=== PATIENT | male | born 1960 | race African-American/Black ===

== ENCOUNTER 2016-12-03 01:42 | Emergency (ER) | payer OTHER ==
[2016-12-02 21:59] LABS: INFLUENZA A NEG (NEG)
[2016-12-02 22:00] LABS: INFLUENZA B NEG (NEG)
--- NOTE | ~2016-12-03 | CR72 ---
[facility] A Service of [facility] & [facility] RADIOLOGY TEXT RESULTS PATIENT: DANIEL ADAMSON LOCATION: [facility] : 58 UNIT #: [id number] AGE: [address]: Felipe Bowling MD SEX: M ORDER DR: [id number] [facility] [address] [place], [place] [address] [id number] MR#: [id number] Acc #: [id number] NAME: DANIEL ADAMSON : 1960 SEX: M STUDY DATE/TIME: 12/03/2016 1:14 UNIT: [facility] ROOM: STUDY DESCRIPTION: CR Chest Single View Portable Attending Physician: Felipe Bowling M.D. Ordering Physician: Ed Doctor [id number] [facility] Primary Care Physician: No Primary Care Physician MEDICAL IMAGING REPORT This report is preliminary unless electronic signature is present EXAM AP portable chest 12/03/2016 HISTORY A 56-year-old male in the ED complaining of 3-day history of shortness of air, cough and body aches. TECHNIQUE AP portable chest x-ray. FINDINGS The examination is negative. Heart size and pulmonary vascularity are normal. The lungs are expanded and clear. No visible pulmonary infiltrate or pleural effusion. No change since 03/17/2015. IMPRESSION Negative chest. Dictated by... Mauricio Palomo M.D. THIS IS AN ELECTRONICALLY VERIFIED REPORT Mauricio Palomo M.D. at 12/03/2016 10:06 PM MED/miriam TD: 12/03/2016 13:11 JOB #: [id number] MEDICAL IMAGING REPORT Page 1 of 1 COPY
[2016-12-03 01:11] LABS: BASOPHIL# 0.1 X10e3 (0-0.3); BASOPHIL% 0.7 % (0-2.5); EOSINOPHIL# 0.1 X10e3 (0-0.7); EOSINOPHIL% 0.7 % (0.0-7.0); HEMATOCRIT 47.4 % (38.0-50.0); HEMOGLOBIN 15.6 gm/dL (13.0-16.0); LYMPHOCYTE# 2.2 X10e3 (1.0-3.5); LYMPHOCYTE% 24.8 % (17.0-45.0); MEAN CELL VOLUME 91.1 FL (83-96); MEAN CORPUSCULAR HEMOGLOBIN 29.9 PG (28-34); MEAN CORPUSCULAR HGB CONC 32.9 g/dL (30-36); MEAN PLATELET VOLUME 9.7 FL (6.5-11.5); MONOCYTE# 0.6 X10e3 (0-1.0); MONOCYTE% 7.1 % (3.0-12.0); NEUTROPHIL# 5.8 X10e3 (1.5-7.1); NEUTROPHIL% 66.7 % (40-75); PLATELET COUNT 262 X10e3 (140-420); RED CELL DISTRIBUTION WIDTH 14.5 % (11.0-15.5); WHITE BLOOD COUNT 8.7 X10e3 (4.0-10.5)
[2016-12-03 01:15] LABS: DIFF IND NO
[2016-12-03 01:31] LABS: URINE SOURCE CLEAN CATCH
[2016-12-03 01:36] LABS: URINE BILIRUBIN NEG (NEG); URINE BLOOD NEG (NEG); URINE COLOR DK YELLOW; URINE GLUCOSE NEG (NEG); URINE KETONE 1+ (NEG); URINE LEUKOCYTE ESTERASE NEG (NEG); URINE NITRATE NEG (NEG); URINE PROTEIN NEG (NEG); URINE SPECIFIC GRAVITY 1.027 (1.003-1.035)
[2016-12-03 01:40] LABS: CULTURE INDICATED? NO
[~2016-12-03 01:42] MED LIST: AZITHROMYCIN250 MG PO; BENTYL10 MG PO; NO MEDICATIONS; PHENERGAN PO; PHENERGAN25 MG PO; ZOFRAN ODT4 MG PO
[2016-12-03 02:42] LABS: ALKALINE PHOSPHATASE 89 U/L (32-92); ALT (SGPT) 17 U/L (10-40); AST (SGOT) 19 U/L (10-42); BILIRUBIN,TOTAL 0.8 mg/dL (0.2-2.0); BLOOD UREA NITROGEN 19 mg/dL (9-23); BUN/CREATININE RATIO 23.75; CALCIUM SERUM 9.5 mg/dL (8.4-10.2); CARBON DIOXIDE 25 mmol/L (22-31); CHLORIDE 101 mmol/L (100-111); CREATININE SERUM 0.8 mg/dL (0.6-1.4); GLOM FILT RATE Estimated ABOVE60 mL/min (>60); GLUCOSE FASTING 109 mg/dL (70-110); POTASSIUM 3.6 mmol/L (3.5-5.1); PROTEIN TOTAL SERUM 7.8 g/dL (6.0-8.3); SODIUM 136 mmol/L (135-145)
== END 2016-12-03 03:50 | disposition home or self-care (01) ==
LOC: CED 01:42
PROVIDERS: Emergency Medicine
DX: J06.9 Acute upper respiratory infection, unspecified (principal)
CPT/HCPCS: 36415; 71010; 80053; 81003; 85025; 87804; 96361; 96374; 99284; J1885

== ENCOUNTER 2017-01-13 05:58 | Inpatient (IN) | payer OTHER ==
--- NOTE | ~2017-01-13 | CT4 ---
[facility] A Service of [facility] & [facility] RADIOLOGY TEXT RESULTS PATIENT: DANIEL ADAMSON LOCATION: C2A 201-01 : 58 UNIT #: [id number] AGE: [address]: Alayna Dyson MD SEX: M ORDER DR: [id number] [facility] [address] [place], [place] [address] [id number] MR#: [id number] Acc #: [id number] NAME: DANIEL ADAMSON : 1960 SEX: M STUDY DATE/TIME: 01/13/2017 5:32 UNIT: [facility] ROOM: 87267 STUDY DESCRIPTION: CT Abd and Pelv Wo Cont Attending Physician: Alayna Dyson M.D. Ordering Physician: Brittny Kaiser M.D. Primary Care Physician: Primary Care Physician No MEDICAL IMAGING REPORT This report is preliminary unless electronic signature is present EXAM CT abdomen and pelvis without contrast 01/13/2017 HISTORY 56-year-old male with nausea, vomiting for 6 days. Left flank pain. History of liver hemangioma. COMPARISON CT abdomen and pelvis with contrast 04/07/2015, 03/12/2011. PROCEDURE 3 mm noncontrast axial images through the abdomen and pelvis. Enteric contrast was not administered. Sagittal and coronal reformatted images were obtained. This CT examination was performed with one or more of the following radiation dose reduction techniques: automatic exposure control, adjustment of mA and/or kV according to patient size, and iterative reconstruction. FINDINGS ABDOMEN: Lobulated low-density lesion in the medial left hepatic segment measures approximately 7 cm and corresponds to the patient's known hemangioma. Cystic foci are seen elsewhere within the liver. Low-density lesion in the posterior right hepatic lobe measures approximately 1 cm and is unchanged, thought to most likely represent a hemangioma, as well, corresponding to the previous CT findings. No new liver lesion is evident. Lung bases are clear. The spleen, pancreas, adrenals and kidneys have a normal noncontrast appearance. No renal or ureteral stone, hydronephrosis, hydroureter or perinephric inflammation is seen. Limited evaluation of bowel due to lack of enteric contrast but no focal bowel inflammation is seen. The appendix is normal. There is mild calcific atherosclerosis within the abdominal aorta. [facility] A Service of [facility] RADIOLOGY TEXT RESULTS PATIENT: DANIEL ADAMSON LOCATION: C2A 201-01 : 58 UNIT #: [id number] AGE: [address]: Alayna Dyson MD SEX: M ORDER DR: PELVIS: Urinary bladder, prostate and rectum are normal. Small pelvic phleboliths. No pelvic free fluid or adenopathy is seen. No acute osseous abnormalities are identified. IMPRESSION 1. No acute findings are appreciated within the abdomen or pelvis. 2. 7 cm low-density lesion in the left hepatic lobe compatible with hemangioma. Other low-density lesions scattered throughout the liver parenchyma are stable since 04/07/2015 in keeping with benign cysts or hemangiomas. 3. The appendix is normal. 4. No urinary tract stone or hydronephrosis or perinephric inflammation is seen. Dictated by... Nirmala Yung M.D. THIS IS AN ELECTRONICALLY VERIFIED REPORT Nirmala Yung M.D. at 01/13/2017 9:59 PM DEONNA/rajiv TD: 01/13/2017 06:54 JOB #: [id number] MEDICAL IMAGING REPORT Page 1 of 1 COPY
--- NOTE | ~2017-01-13 | HP ---
Unit #: [id number] #: [id number] Patient: DANIEL MEDEROS [id number] [place], [place] [address] [id number] MR#: [id number] NAME: DANIEL MEDEROS ROOM: 201 Age: 56 Sex: M Admission Date: 01/13/2017 : 1960 Attending Physician: Alayna Dyson M.D. [facility] HISTORY AND PHYSICAL CHIEF COMPLAINT Abdominal pain. HISTORY OF PRESENT ILLNESS Mr. Mederos is a nice 56-year-old male who presented to the emergency department with complaints of abdominal pain. The patient states he has chronic pain in his testicle and has had surgery on his testicle on two previous occasions. He notes he was having thick urine and a pain associated with urination late last week. He presented to the [facility], at which time he reportedly had a testicular ultrasound which was normal and he returned home. Beginning Thursday evening, after the procedure, he developed recurrent nausea and vomiting. He denies any hematemesis. He developed the onset of abdominal pain after vomiting. He noted a decreased urine output over the weekend. He did have a single episode of nonbloody diarrhea on Thursday. He has had minimal oral intake since that time. Given he had recurrent nausea and vomiting and new onset abdominal pain, he presented to our emergency department. Upon presentation the patient was mildly tachycardic with a pulse rate of 112. Examination in the emergency room revealed diffuse abdominal tenderness. He underwent CT scan of the abdomen and pelvis which did not reveal any acute findings. Lab work, however, revealed a creatinine of 4.2 from a reportedly normal baseline. He subsequently has been referred for admission. Now he states his abdominal pain is better. He has not had any emesis in the last nine hours and actually ate breakfast. He does complain of some pain in his testicles with urination, but again states this is chronic. He has had no new sexual partners and denies any fever. PAST MEDICAL HISTORY 1. Migraine headaches. 2. Known liver hemangioma. 3. Reported cyst on the testicle, status post surgery times two. 4. Tobaccoism. PAST SURGICAL HISTORY 1. Cervical neck surgery. 2. Surgery for a cyst on his testicles times two. SOCIAL HISTORY The patient smokes a half pack of cigarettes per day for at least 20 years. He is vague on how long he has been smoking. He states he drinks two drinks of alcohol, but again is vague on how frequent this is. He lives with his and is obviously . ALLERGIES Unit #: [id number] #: [id number] Patient: DANIEL MEDEROS No known drug allergies. HOME MEDICATIONS None. REVIEW OF SYSTEMS He reports a 40 pound weight loss over the last year that was unintentional. He states his last known weight was 200 and today he is in the 160s. Decreased urine output and some thick discolored urine. Again, he denies any fever. No chest pain. No shortness of breath. No palpitations. No sore throat. No falls. Otherwise 10-point review of systems was reviewed and negative. PHYSICAL EXAMINATION GENERAL: The patient is awake and alert. He is oriented times three. Very pleasant. Vague historian. VITALS: Temperature 98.7, blood pressure 136/89, pulse rate 94 currently, respiratory rate 20, oxygen saturation 98% on room air. HEENT: Pupils equally reactive bilaterally. Anicteric sclerae. No conjunctival pallor. Oropharynx with significantly dry mucous membranes. No erythema or exudate. NECK: Supple. No lymphadenopathy or thyromegaly. No jugular venous distension. ABDOMEN: Soft Diffusely mildly tender with no guarding or rebound. Nondistended. Positive bowel sounds. EXTREMITIES: No cyanosis, clubbing or edema. Pedal pulses 2/4. GENITOURINARY: Uncircumcised male with normal penis. I believe I can palpate perhaps three testicles, but there is no erythema. There is no tenderness. There is no obvious mass. There is no evidence of varicocele. MUSCULOSKELETAL: No joint erythema or deformity noted. NEUROLOGIC: Cranial nerves II through XII intact. Sensation, strength and deep tendon reflexes are all normal. PSYCHIATRIC: Alert and oriented times three. No suicidal or homicidal ideation. DIAGNOSTIC STUDIES IMAGING: CT scan of the abdomen and pelvis reveals a large 7 cm left hepatic lobe hemangioma that is stable. There are other low-density lesions throughout the liver. Normal appendix. No evidence of urinary tract stone or hydronephrosis or perinephric inflammation. LABORATORY: Lab work done in the emergency department reveals a white blood cell count of 15.1, hemoglobin 17.5, platelet count 292,000. Sodium 136, potassium 3.5, chloride 95, bicarb 24, BUN 44, creatinine 4.2, glucose 149. Urinalysis reveals trace leukocyte esterase, trace protein, 5-10 WBCs and no bacteria. ASSESSMENT 1. Acute kidney injury, likely prerenal. 2. Nausea and vomiting. Question gastroenteritis versus other. 3. Chronic testicular pain without obvious infection. 4. Polycythemia secondary to dehydration. 5. Known liver hemangioma, stable. 6. Tobaccoism. 7. History of migraine headache. PLAN 1. Admit the patient to inpatient under medical/surgical. Unit #: [id number] #: [id number] Patient: DANIEL MEDEROS 2. Begin normal saline at 125 ml an hour and follow up creatinine in the morning. 3. I am going to check a urine sodium. Will hold on De La Garza catheter placement at this time given no evidence of hydronephrosis. 4. Symptomatic treatment for nausea and vomiting at this time. 5. Will obtain copy of most recent labs and testicular ultrasound from [facility] in [place] to follow up this testicular pain. I cannot find any obvious source of infection at this time. 6. Will recheck blood counts in the morning. Again, I feel this is most likely dehydration. 7. Briefly counseled regarding tobacco use. 8. DVT prophylaxis with SCDs. Dictated by Alayna Dyson M.D. MICHAEL/jose TD: 01/13/2017 09:30 JOB #: [id number] HISTORY AND PHYSICAL Page 1 of 1 X Alayna Dyson MD X HISTORY AND PHYSICAL
--- NOTE | ~2017-01-13 | DS ---
Unit #: [id number] #: [id number] Patient: DANIEL MEDEROS [id number] [place], [place] [address] [id number] I MR#: [id number] NAME: DANIEL MEDEROS ROOM: 201 Age: 56 Sex: M Admission Date: 01/13/2017 : 1960 Discharge Date: 01/14/2017 Attending Physician: Alayna Dyson M.D. Primary Care Physician: Primary Care Physician No DISCHARGE SUMMARY PRINCIPAL DIAGNOSES 1. Acute kidney injury, prerenal, discharge creatinine 1.0. 2. Nausea, vomiting, likely gastroenteritis. 3. Hypokalemia. 4. Polycythemia secondary to dehydration. Discharge hemoglobin 13.9. 5. Chronic testicular pain with documented bilateral epididymal cyst or spermatoceles that are stable. 6. Benign ectasia, right rete testis, also noted on ultrasound at the [facility]. 7. Known liver hemangioma, stable. 8. Tobaccoism. 9. History of migraine headache. CONSULTANTS None. PROCEDURE CT scan of abdomen and pelvis without contrast on January 13, 2017, with no acute findings. 7-cm low-density lesion, left hepatic lob that is known and stable. CLINICAL HISTORY AND HOSPITAL COURSE Mr. Mederos is a very nice 56-year-old male who presents to the emergency department with intractable nausea, vomiting, and subsequent belly pain. Please refer to H and P for further details. In the emergency department, the patient underwent CT scan of the abdomen and pelvis which was unremarkable. However, he was found to have a creatinine of 4.2, and he was subsequently admitted. The patient received some IV fluids, and today his creatinine is now down to 1.0. His nausea and vomiting have resolved. I suspect this was a gastroenteritis, and no further workup is needed. He did develop some mild hypokalemia secondary to IV hydration, but this has also been treated. The patient was complaining of testicular pain which was chronic. He recently had a testicular ultrasound done at the [facility] last week, and the report was reviewed. He does not appear to have any significant new causative pathology and did not have a positive urine culture here. I instructed him to follow up with Urology at the [facility]. CONDITION ON DISCHARGE Stable. DISCHARGE STATUS Discharged to home. Unit #: [id number] #: [id number] Patient: DANIEL MEDEROS DISCHARGE MEDICATIONS None. FOLLOWUP The patient will follow up with Dr. Calderon at the [facility] in 2 weeks and would benefit from a referral to Urology at that time. Dictated by... Alayna Dyson M.D. MICHAEL/kobe TD: 01/15/2017 11:00 JOB #: [id number] DISCHARGE SUMMARY Page 1 of 1 X Alayna Dsyon MD X DISCHARGE SUMMARY
[2017-01-13 04:31] LABS: BASOPHIL# 0.1 X10e3 (0-0.3); BASOPHIL% 0.6 % (0-2.5); DIFF IND NO; EOSINOPHIL% 0.1 % (0.0-7.0); HEMATOCRIT 53.6 % (38.0-50.0); HEMOGLOBIN 17.5 gm/dL (13.0-16.0); LYMPHOCYTE# 1.9 X10e3 (1.0-3.5); LYMPHOCYTE% 12.8 % (17.0-45.0); MEAN CELL VOLUME 89.5 FL (83-96); MEAN CORPUSCULAR HEMOGLOBIN 29.3 PG (28-34); MEAN CORPUSCULAR HGB CONC 32.7 g/dL (30-36); MEAN PLATELET VOLUME 9.8 FL (6.5-11.5); MONOCYTE# 1.3 X10e3 (0-1.0); MONOCYTE% 8.3 % (3.0-12.0); NEUTROPHIL# 11.8 X10e3 (1.5-7.1); NEUTROPHIL% 78.2 % (40-75); PLATELET COUNT 292 X10e3 (140-420); RED BLOOD COUNT 5.99 X10e (3.90-5.60); RED CELL DISTRIBUTION WIDTH 14.2 % (11.0-15.5); WHITE BLOOD COUNT 15.1 X10e3 (4.0-10.5)
[2017-01-13 04:55] LABS: ALBUMIN SERUM 4.9 g/dL (3.5-5.0); BILIRUBIN, DIRECT 0.1 mg/dL (0.0-0.2); BILIRUBIN,INDIRECT 0.7 mg/dL (0.0-0.9); BILIRUBIN,TOTAL 0.8 mg/dL (0.2-2.0); BUN/CREATININE RATIO 10.47; CREATININE SERUM 4.2 mg/dL (0.6-1.4); POTASSIUM 3.5 mmol/L (3.5-5.1); PROTEIN TOTAL SERUM 8.9 g/dL (6.0-8.3)
[2017-01-13 05:42] LABS: URINE APPEARANCE CLOUDY; URINE BILIRUBIN NEG (NEG); URINE BLOOD NEG (NEG); URINE COLOR DK YELLOW; URINE GLUCOSE NEG (NEG); URINE KETONE TRACE (NEG); URINE LEUKOCYTE ESTERASE TRACE (NEG); URINE NITRATE NEG (NEG); URINE PROTEIN TRACE (NEG)
[2017-01-13 05:44] LABS: CULTURE INDICATED? YES; URINE BACTERIA AUWI NEG (NEGATIVE); URINE SQUAMOUS EPITHELIAL CELL FEW /[HPF]
[2017-01-13 05:55] LABS: U HYALINE CASTS AUWI 50-100 /[LPF]
[2017-01-13 05:58] LABS: URINE TRANSITIONAL EPI CELLS FEW /[HPF]
[2017-01-13] MEDS ORDERED: NO MEDICATIONS (08:18)
[2017-01-14 05:27] LABS: HEMATOCRIT 42.1 % (38.0-50.0); MEAN CORPUSCULAR HEMOGLOBIN 29.6 PG (28-34); MEAN CORPUSCULAR HGB CONC 32.9 g/dL (30-36); MEAN PLATELET VOLUME 9.4 FL (6.5-11.5); RED BLOOD COUNT 4.68 X10e (3.90-5.60); RED CELL DISTRIBUTION WIDTH 13.9 % (11.0-15.5); WHITE BLOOD COUNT 9.9 X10e3 (4.0-10.5)
[2017-01-14 05:55] LABS: HEMOGLOBIN 13.9 gm/dL (13.0-16.0)
[2017-01-14 07:40] LABS: CALCIUM SERUM 8.6 mg/dL (8.4-10.2); GLOM FILT RATE Estimated 96.4 mL/min (>60); MAGNESIUM 1.9 mg/dL (1.6-3.0); POTASSIUM 3.4 mmol/L (3.5-5.1)
== END 2017-01-14 12:59 | disposition home or self-care (01) | DRG 684 ==
LOC: CED 05:58 → CEDOF 06:22 → C2A 07:40
PROVIDERS: Internal Medicine; Nurse Practitioner Family
DX: N17.9 Acute kidney failure, unspecified (principal); D75.1 Secondary polycythemia; K52.9 Noninfective gastroenteritis and colitis, unspecified; E87.6 Hypokalemia; E86.0 Dehydration; N50.819 Testicular pain, unspecified; N50.3 Cyst of epididymis; N43.40 Spermatocele of epididymis, unspecified; D18.03 Hemangioma of intra-abdominal structures; F17.210 Nicotine dependence, cigarettes, uncomplicated
CPT/HCPCS: 36415; 74176; 80048; 80076; 81003; 82150; 83690; 83735; 84443; 85025; 85027; 87086; 96361; 96374; 96375; 99285; J1170; J2270; J2405